=== PATIENT | male | born 1990 | race Caucasian/White ===

== ENCOUNTER 2016-07-02 06:27 | Day surgery (SDC) | payer BC, OTHER ==
[~2016-07-02] VITALS: Ht 165.1 cm; Wt 74.0 kg
[2016-07-02] MEDS ORDERED: LACTATED RINGERS 1,000 ML IV SCH (07:02)
[2016-07-02] MEDS ORDERED: CEPH-376 PO (07:13)
[2016-07-02] MEDS ORDERED: MOME13HF3 INH (07:13)
[2016-07-02] MEDS ORDERED: OXYC-229 PO (07:13)
[2016-07-02] MEDS ORDERED: ALBU8.5H3 INH (07:13)
[2016-07-02] MEDS ORDERED: SERT50TA5 PO (07:13)
[2016-07-02 07:22] VITALS: BP 113/71
[2016-07-02] MEDS ORDERED: FENTANYL PF 250 MCG/5ML ONE (07:25)
[2016-07-02] MEDS ORDERED: MIDAZOLAM 1 MG/ML, 2ML ONE (07:25)
[2016-07-02] MEDS ORDERED: BUPIVACAINE/PF-EPI 0.5% 1:200K ONE ×2 (07:30→07:32)
[2016-07-02] MEDS ORDERED: LIDOCAINE 1%, 2ML SQ PRN (07:30)
[2016-07-02] MEDS ORDERED: CEFAZOLIN 1,000 MG ONE (08:03)
[2016-07-02] MEDS ORDERED: DEXAMETHASONE 4 MG/ML, 1ML ONE (08:03)
[2016-07-02] MEDS ORDERED: PROPOFOL 10 MG/ML, 20ML ONE (08:03)
[2016-07-02] MEDS ORDERED: ONDANSETRON 2MG/ML, 2ML ONE (08:03)
[2016-07-02] MEDS ORDERED: LABETALOL 5MG/ML, 20ML IV PRN (08:30)
[2016-07-02] MEDS ORDERED: HYDROmorphone 1 MG/ML, 1ML IV PRN ×2 (08:30→11:30)
[2016-07-02] MEDS ORDERED: ONDANSETRON 2MG/ML, 2ML IVPush PRN (08:30)
[2016-07-02] MEDS ORDERED: OXYcodone 5 MG/5 ML ORAL.SOL UDC PO PRN (08:30)
[2016-07-02] MEDS ORDERED: MEPERIDINE/PF 25MG/0.5ML IVPush PRN (08:30)
[2016-07-02] MEDS ORDERED: METOCLOPRAMIDE 5 MG/ML, 2ML IV PRN (08:30)
[2016-07-02] MEDS ORDERED: PROMETHAZINE 25 MG/ML, 1ML IV PRN (08:30)
[2016-07-02] MEDS ORDERED: hydrALAzine 20 MG/ML, 1ML IV PRN (08:30)
[2016-07-02] MEDS ORDERED: MIDAZOLAM 1 MG/ML, 2ML IV PRN (08:30)
[2016-07-02] MEDS ORDERED: ACETAMINOPHEN 325 MG TABLET PO PRN (08:30)
[2016-07-02] MEDS ORDERED: FENTANYL PF 100 MCG/2ML ONE (09:14)
[2016-07-02] MEDS ORDERED: OXYcodone 5 MG/5 ML ORAL.SOL UDC ONE (09:14)
[2016-07-02] MEDS: FENTANYL PF 100 MCG/2ML IV PRN ×2 (09:16→09:33)
[2016-07-02] MEDS ORDERED: KETOROLAC 30 MG/1 ML ONE (11:03)
[2016-07-02] MEDS ORDERED: KETOROLAC 30 MG/1 ML IVPush PRN (11:30)
== END 2016-07-02 11:45 | disposition home or self-care (01) ==
LOC: OUT 06:27
PROVIDERS: ATTEND Orthopaedic Surgery
DX: S42.022A Displaced fracture of shaft of left clavicle, initial encounter for closed fracture (principal); J45.909 Unspecified asthma, uncomplicated; Z91.018 Allergy to other foods; V98.8XXA Other specified transport accidents, initial encounter; Y93.55 Activity, bike riding; Y92.9 Unspecified place or not applicable; Y99.9 Unspecified external cause status
CPT/HCPCS: 23515; 73000; 76000; C1713; J0690; J1100; J1885; J2250; J2405; J2704; J3010; J3490; J7120